=== PATIENT | male | born 2000 | race Caucasian/White ===

== ENCOUNTER 2021-01-24 15:08 | Outpatient (REF) | payer OTHER, SELFPAY ==
--- NOTE | ~2021-01-24 | XR_ITS ---
EXAMINATION: XR FOOT, RIGHT CLINICAL INFORMATION: Contusion right foot COMPARISON: Right foot 06/23/2018 TECHNIQUE: AP, lateral, and oblique views of the right foot. FINDINGS: There is a fracture of the head of the distal medial fifth metatarsal which is most likely comminuted but does not appear to involve the joint space. No other bony abnormality is seen. XR/XR foot RT min 3V IMPRESSION: Fracture head of fifth metatarsal
== END 2021-01-24 15:09 | disposition home or self-care (01) ==
LOC: HO.HMGCX 15:08
PROVIDERS: Visit Provider Internal Medicine
DX: S90.31XA Contusion of right foot, initial encounter (principal)
CPT/HCPCS: 73630

== ENCOUNTER → 2021-02-17 12:16 | Outpatient (BNVA) | payer OTHER, SELFPAY | PROVIDERS: PCP Internal Medicine; Visit Provider Physician Assistant | DX: S92.911A Unspecified fracture of right toe(s), initial encounter for closed fracture (principal) | CPT/HCPCS: 99202 ==

== ENCOUNTER 2021-02-22 10:28 | Outpatient (REF) | payer OTHER, SELFPAY ==
[2021-02-22 11:28] LABS: MANUAL DIFF FLAG NO
[2021-02-22 11:39] LABS: Basophils Percent Auto 0.4 % (0-2); Eosinophils Absolute Auto 0.3 X10*3/uL (0.0-0.4); Hematocrit 44.2 % (42.0-52.0); Hemoglobin 14.4 g/dl (14.0-18.0); Imm Gran Abs Auto 0.02 X10*3/uL (0.00-0.03); Imm Gran Pct Auto 0.3 % (0.0-0.4); Lymphocytes Absolute Auto 2.3 X10*3/uL (1.2-4.9); Lymphocytes Percent Auto 32.6 % (20-40); Mean Corpuscular HGB Conc 32.6 g/dl (31.0-36.0); Mean Corpuscular Hemoglobin 29.8 pg (27.0-33.0); Mean Corpuscular Volume 91.5 fL (80.0-98.0); Mean Platelet Volume 10.3 fL (9.4-12.4); Monocytes Absolute Auto 0.6 X10*3/uL (0.1-1.2); Neutrophils Absolute Auto 3.8 x10*3/uL (2.0-8.3); Neutrophils Percent Auto 53.7 % (45-73); Platelet Count 302 X10*3/uL (160-400); Red Blood Count 4.83 X10*6/uL (4.60-5.80); Red Cell Distribution Width 12.7 % (11.0-16.0)
[2021-02-22 11:58] LABS: Alanine Aminotransferase 33 U/L (0-40); Albumin Level 4.5 g/dL (3.5-5.0); Alkaline Phosphatase 98 U/L (39-117); Anion Gap 11 (12-20); Aspartate Amino Transferase 20 U/L (5-37); Bilirubin Total 0.5 mg/dL (0.0-1.0); Blood Urea Nitrogen 16 mg/dL (9-16); Calcium 9.5 mg/dL (8.4-10.2); Carbon Dioxide 27 mmol/L (22-29); Chloride 108 mmol/L (96-108); Cholesterol 156 mg/dL; Estimated Glomerular Filt Rate > 60; Glucose Fasting 95 mg/dL (60-99); HDL Cholesterol 41 mg/dL; LDL Cholesterol Calculated 93 mg/dl; Potassium 4.5 mmol/L (3.3-5.1); Sodium 141 mmol/L (135-145); Total Protein 7.3 g/dL (6.5-8.0); Triglycerides 112 mg/dL
[2021-02-22 12:21] LABS: TSH reflex Free T4 3.63 uIU/mL (0.32-4.0)
== END 2021-02-22 10:29 | disposition home or self-care (01) ==
LOC: HO.HMGCLDS 10:28
PROVIDERS: PCP Internal Medicine; Visit Provider Internal Medicine
DX: Z00.01 Encounter for general adult medical examination with abnormal findings (principal); G40.909 Epilepsy, unspecified, not intractable, without status epilepticus; E66.09 Other obesity due to excess calories
CPT/HCPCS: 36415; 80053; 80061; 84443; 85025

== ENCOUNTER 2021-11-06 13:56 | Outpatient (REF) | payer OTHER, SELFPAY ==
[2021-11-06 15:05] LABS: Hematocrit 40.3 % (42.0-52.0); Hemoglobin 13.3 g/dl (14.0-18.0); Mean Corpuscular Hemoglobin 29.8 pg (27.0-33.0); Mean Corpuscular Volume 90.4 fL (80.0-98.0); Mean Platelet Volume 9.9 fL (9.4-12.4); Platelet Count 334 X10*3/uL (160-400); Red Blood Count 4.46 X10*6/uL (4.60-5.80); Red Cell Distribution Width 13.2 % (11.0-16.0); White Blood Count 8.6 X10*3/uL (4.8-10.8)
[2021-11-06 15:26] LABS: Alanine Aminotransferase 41 U/L (0-40); Albumin Level 4.7 g/dL (3.5-5.0); Alkaline Phosphatase 90 U/L (39-117); Anion Gap 16 (12-20); Aspartate Amino Transferase 24 U/L (5-37); Bilirubin Direct 0.2 mg/dL (0.0-0.5); Bilirubin Total 0.4 mg/dL (0.0-1.0); Blood Urea Nitrogen 15 mg/dL (9-16); C Reactive Protein 0.62 mg/dL (< or = 0.50); Calcium 9.7 mg/dL (8.4-10.2); Carbon Dioxide 24 mmol/L (22-29); Chloride 106 mmol/L (96-108); Cholesterol 189 mg/dL; Estimated Glomerular Filt Rate > 60; Glucose Random 97 mg/dL (60-115); HDL Cholesterol 47 mg/dL; LDL Cholesterol Calculated 115 mg/dl; Potassium 4.1 mmol/L (3.3-5.1); Sodium 142 mmol/L (135-145); Total Protein 7.6 g/dL (6.5-8.0); Triglycerides 138 mg/dL
[2021-11-06 15:36] LABS: Thyroid Stimulating Hormone 3.04 uIU/mL (0.32-4.0)
== END 2021-11-06 13:57 | disposition home or self-care (01) ==
LOC: HO.HMGCLDS 13:56
PROVIDERS: PCP Internal Medicine; Visit Provider Internal Medicine
DX: R19.7 Diarrhea, unspecified (principal)
CPT/HCPCS: 36415; 80048; 80061; 80076; 84443; 85027; 86140

== ENCOUNTER 2022-10-23 12:36 | Outpatient (AMB) | payer OTHER, SELFPAY ==
--- NOTE | 2022-10-23 12:37 | MHC.PC.OV ---
Vital Signs 10/23/22 12:44 Height 5 ft 11 in Weight 282 lb BMI 39.3 BP 114/68 Blood Pressure Location Rt brachial Position Sitting Pulse 80 Pulse Source Pulse Oximeter Pulse Oximetry (%) 97 Oxygen Delivery Method Room Air Intake Visit Reasons: 3 Month follow up Allergies No Known Allergies Allergy (Verified 10/23/22 12:42) Medication List - Last Reconciled 10/23/22 by Silvia Amezquita MD fluoxetine 30 mg (3 x 10 mg) PO DAILY 90 days levetiracetam 2,000 mg PO BID Tobacco use date assessed: 10/23/22 Dental Screening Dental Screen Date: 10/23/22 Did you have a dental visit in the last 12 months?: Yes Did you have a dental problem in the last 6 months where you did not have access to dental care?: Yes Was dental information given to patient?: Patient has dentist HPI 3 Month follow up HPI Details Patient is 22-year-old gentleman came in today to have follow-up on anxiety Patient is currently taking 20 mg of fluoxetine his anxiety is better however patient feels as if he needs a little bit stronger does I am increasing it to 30 mg I have sent 20 mg and 10 mg patient is to take them both together daily He is also complaining of feeling tired during the day and falls asleep easily Patient does admit to snoring at night off and on. I have placed a referral for him to see a sleep specialist for evaluation. Follow-up 2 months on anxiety PFSH Family History Other Mental health disorder Social History Housing: Apartment Patient Tobacco Use Status: Former Tobacco user (4 years ago ) Quit Date: 2017 Tobacco use type: Cigarette Years Smoked: 1 year e-Cigarette/Vaping Use: Never Used Current occupational status: employed Current occupation: [employer]/ left hand Cognitive needs: No Hearing needs: No Vision needs: Yes (contacts) Questionnaire Thrive Questionnaire Date Thrive assessed: 07/31/22 AUDIT C Alcohol Use Questionnaire (AUDIT-C) 1. How often do you have a drink containing alcohol?: Monthly or less 2. How many drinks containing alcohol do you have on a typical day when you are drinking?: 1 or 2 3. How often do you have six or more drinks on one occasion?: Never Total Score: 1 JOYCE-7 AMB Questionnaire JOYCE-7 Date JOYCE - 7 assessed: 07/31/22 Source: Developed by Drs. Gabriel Melchor, Aminata Banks, Gavin Gonzalez and colleagues, with an educational nigel from [employer]. Review of Systems Const Denies chills and Denies fever(s) ENT Denies epistaxis and Denies nasal discharge Card Denies chest pain Resp Denies chest congestion, Denies cough and Denies hemoptysis GI Denies diarrhea and Denies nausea Skin/Breast Denies rash Neuro Reports no additional complaints Psych Reports no additional complaints Endo Reports no additional complaints Physical exam (Primary Care) Vital Signs: Last Vital Signs Pulse 80 10/23/22 12:44 BP 114/68 10/23/22 12:44 Pulse Ox 97 10/23/22 12:44 Oxygen Delivery Method Room Air 10/23/22 12:44 BMI result Body Mass Index 39.3 Tobacco/Smoking Status: Tobacco use Status Tobacco use date assessed 10/23/22 10/23/22 12:44 Patient Tobacco Use Status Former Tobacco user (4 years 10/23/22 12:39 ago ) Tobacco use type Cigarette 10/23/22 12:39 e-Cigarette/Vaping Use Never Used 10/23/22 12:39 Thrive Assessment: Date of Thrive Assessment Date Thrive assessed 07/31/22 10/23/22 12:39 Const General: cooperative, comfortable and no acute distress Orientation/consciousness: patient oriented x3 HENMT Head: Yes normocephalic Eyes General: appearance normal, both eyes and all related structures Neck Neck: Yes supple Resp Effort & Inspection: normal respiratory effort, no cough and no stridor Cardio Rhythm: regular rhythm Heart sounds: S1 normal heart sound present and S2 normal heart sound present Skin General skin exam: turgor normal Neuro General: patient oriented x3, tone normal and moves all extremities Extrem Right lower extremity: no edema Left lower extremity: no edema Assessment and Plan Assessment & Plan (1) Major depression, recurrent: Code(s): F33.9 - Major depressive disorder, recurrent, unspecified (2) Daytime somnolence: Code(s): R40.0 - Somnolence Plan Patient is 22-year-old gentleman came in today to have follow-up on depression Patient is currently taking 20 mg of fluoxetine his anxiety is better however patient feels as if he needs a little bit stronger does I am increasing it to 30 mg I have sent 20 mg and 10 mg patient is to take them both together daily He is also complaining of feeling tired during the day and falls asleep easily Patient does admit to snoring at night off and on. I have placed a referral for him to see a sleep specialist for evaluation. Follow-up 2 months on depression Orders: Referrals Sleep Medicine Referral R40.0 - Somnolence Medications: Changed From fluoxetine Take 1 capsule for 10 days and then 2 daily 20 mg (2 x 10 mg) PO DAILY 180 caps 0RF 90 days To fluoxetine Take 3 capsules daily 30 mg (3 x 10 mg) PO DAILY 270 caps 0RF Depression 90 days Coding Level of Care Code Est Pt Level 3 (67084) Diagnoses Major depression, recurrent F33.9 Daytime somnolence R40.0
[2022-10-23 12:44] VITALS: BP 114/68; PULSE 80; O2SAT 97; BMI 39.3
== END 2022-10-23 13:40 | disposition home or self-care (01) ==
PROVIDERS: Visit Provider Internal Medicine
DX: F33.9 Major depressive disorder, recurrent, unspecified (principal); R40.0 Somnolence
CPT/HCPCS: 99213

== ENCOUNTER 2022-12-25 12:32 | Outpatient (AMB) | payer OTHER, SELFPAY ==
--- NOTE | 2022-12-25 12:34 | A.OFFPC_ITS ---
Vital Signs 12/25/22 12:35 Height 5 ft 11 in Weight 283 lb BMI 39.5 BP 110/70 Blood Pressure Location Rt brachial Position Sitting Pulse 94 Pulse Source Pulse Oximeter Pulse Oximetry (%) 98 Oxygen Delivery Method Room Air Intake Visit Reasons: 3 onth follow up Intake Note: Pt is here today for 3 months follow up visit. Allergies No Known Allergies Allergy (Verified 12/25/22 12:36) Medication List - Last Reconciled 12/25/22 by Silvia Amezquita MD fluoxetine 30 mg (3 x 10 mg) PO DAILY 90 days levetiracetam 2,000 mg PO BID Tobacco use date assessed: 10/23/22 HPI 3 onth follow up HPI Details Patient is 22-year-old gentleman came in today for his regular follow- up appointment Depression/anxiety: Patient is on fluoxetine 30 mg currently, he is feeling better but would like to increase the dose to 40 mg that he was taking in the past. Patient is morbidly obese, having difficulty losing weight he is requesting consultation with the dietitian, we will book the appointment. Patient would also like to have labs done to check his sugar and cholesterol, order placed to be done fasting. He is still waiting for his appointment with a neurologist to talk about sleep apnea. I see that he has appointment coming up early next month. Follow-up 2 months physical exam. PFSH Family History Other Mental health disorder Social History Housing: Apartment Patient Tobacco Use Status: Former Tobacco user (4 years ago ) Quit Date: 2017 Tobacco use type: Cigarette Years Smoked: 1 year e-Cigarette/Vaping Use: Never Used Current occupational status: employed Current occupation: [employer]/ left hand Cognitive needs: No Hearing needs: No Vision needs: Yes (contacts) Questionnaire Thrive Questionnaire Date Thrive assessed: 07/31/22 JOYCE-7 AMB Questionnaire JOYCE-7 Date JOYCE - 7 assessed: 07/31/22 Source: Developed by Drs. Gabriel Melchor, Aminata Banks, Gavin Gonzalez and colleagues, with an educational nigel from [employer]. Review of Systems Const Denies chills and Denies fever(s) ENT Denies epistaxis and Denies nasal discharge Card Denies chest pain Resp Denies chest congestion, Denies cough and Denies hemoptysis GI Denies diarrhea and Denies nausea Skin/Breast Denies rash Neuro Reports no additional complaints Psych Reports no additional complaints Endo Reports no additional complaints Physical exam (Primary Care) Vital Signs: Last Vital Signs Pulse 94 12/25/22 12:35 BP 110/70 12/25/22 12:35 Pulse Ox 98 12/25/22 12:35 Oxygen Delivery Method Room Air 12/25/22 12:35 BMI result Body Mass Index 39.5 Tobacco/Smoking Status: Tobacco use Status Tobacco use date assessed 10/23/22 12/25/22 12:38 Patient Tobacco Use Status Former Tobacco user (4 years 12/25/22 12:38 ago ) Tobacco use type Cigarette 12/25/22 12:38 e-Cigarette/Vaping Use Never Used 12/25/22 12:38 Thrive Assessment: Date of Thrive Assessment Date Thrive assessed 07/31/22 12/25/22 12:38 Const General: cooperative, comfortable and no acute distress Orientation/consciousness: patient oriented x3 HENMT Head: Yes normocephalic Eyes General: appearance normal, both eyes and all related structures Neck Neck: Yes supple Resp Effort & Inspection: normal respiratory effort, no cough and no stridor Cardio Rhythm: regular rhythm Heart sounds: S1 normal heart sound present and S2 normal heart sound present Skin General skin exam: turgor normal Neuro General: patient oriented x3, tone normal and moves all extremities Extrem Right lower extremity: no edema Left lower extremity: no edema Assessment and Plan Assessment & Plan (1) Major depression, recurrent: Code(s): F33.9 - Major depressive disorder, recurrent, unspecified Qualifiers: Active/Remission status: currently active Major depression episode severity: moderate Qualified Code(s): F33.1 - Major depressive disorder, recurrent, moderate (2) Morbid obesity due to excess calories: Code(s): E66.01 - Morbid (severe) obesity due to excess calories (3) Migraine headache: Code(s): G43.909 - Migraine, unspecified, not intractable, without status migrainosus Qualifiers: Intractability: intractable Migraine type: without aura Status migrainosus presence: without status migrainosus Qualified Code(s): G43.019 - Migraine without aura, intractable, without status migrainosus (4) Daytime somnolence: Code(s): R40.0 - Somnolence (5) LFT elevation: Code(s): R79.89 - Other specified abnormal findings of blood chemistry (6) Seizure disorder: Code(s): G40.909 - Epilepsy, unspecified, not intractable, without status epilepticus Plan Patient is 22-year-old gentleman came in today for his regular follow-up appointment Depression/anxiety: Patient is on fluoxetine 30 mg currently, he is feeling better but would like to increase the dose to 40 mg that he was taking in the past. Patient is morbidly obese, having difficulty losing weight he is requesting consultation with the dietitian, we will book the appointment. Patient would also like to have labs done to check his sugar and cholesterol, order placed to be done fasting. He is still waiting for his appointment with a neurologist to talk about sleep apnea. I see that he has appointment coming up early next month. Follow-up 2 months physical exam. Orders: Orders Complete Blood Count Auto Diff Today E66.01 - Morbid (severe) obesity due to exc ess calories, F33.9 - Major depressive disorder, recurrent, unspecified, G40.909 - Epilepsy, unspecified, not intractable, without status epilepticus, G43.909 - Migraine, unspecified, not intractable, without status migrainosus, R40.0 - Somnolence, R79.89 - Other specified abnormal findings of blood chemistry Comprehensive [place]. Panel Fast Today E66.01 - Morbid (severe) obesity due to excess calories, F33.9 - Major depressive disorder, recurrent, unspecified, G40.909 - Epilepsy, unspecified, not intractable, without status epilepticus, G43.909 - Migraine, unspecified, not intractable, without status migrainosus, R40.0 - Somnolence, R79.89 - Other specified abnormal findings of blood chemistry TSH reflex Free T4 Today E66.01 - Morbid (severe) obesity due to excess calories, F33.9 - Major depressive disorder, recurrent, unspecified, G40.909 - Epilepsy, unspecified, not intractable, without status epilepticus, G43.909 - Migraine, unspecified, not intractable, without status migrainosus, R40.0 - Somnolence, R79.89 - Other specified abnormal findings of blood chemistry Lipid Panel Today E66.01 - Morbid (severe) obesity due to excess calories, F33.9 - Major depressive disorder, recurrent, unspecified, G40.909 - Epilepsy, unspecified, not intractable, without status epilepticus, G43.909 - Migraine, unspecified, not intractable, without status migrainosus, R40.0 - Somnolence, R79.89 - Other specified abnormal findings of blood chemistry Vitamin D 25-OH (D2 and D3) Today E66.01 - Morbid (severe) obesity due to excess calories, F33.9 - Major depressive disorder, recurrent, unspecified, G40.909 - Epilepsy, unspecified, not intractable, without status epilepticus, G43.909 - M igraine, unspecified, not intractable, without status migrainosus, R40.0 - Somnolence, R79.89 - Other specified abnormal findings of blood chemistry Medications: Changed From fluoxetine Take 3 capsules daily 30 mg (3 x 10 mg) PO DAILY 90 days 270 caps 0RF Depression To fluoxetine Take 3 capsules daily 40 mg (2 x 20 mg) PO DAILY 180 caps 0RF Depression 90 days Coding Level of Care Code Est Pt Level 4 (24729) Diagnoses Moderate episode of recurrent major depressive disorder F33.1 Active/Remission status: currently active Major depression episode severity: moderate Morbid obesity due to excess calories E66.01 Intractable migraine without aura and without status migrainosus G43.019 Intractability: intractable Migraine type: without aura Status migrainosus presence: without status migrainosus Daytime somnolence R40.0 LFT elevation R79.89 Seizure disorder G40.909
[2022-12-25 12:35] VITALS: BP 110/70; PULSE 94; O2SAT 98; BMI 39.5
== END 2022-12-25 12:53 | disposition home or self-care (01) ==
PROVIDERS: PCP Internal Medicine; Visit Provider Internal Medicine
DX: G43.019 Migraine without aura, intractable, without status migrainosus (principal); F33.1 Major depressive disorder, recurrent, moderate; E66.01 Morbid (severe) obesity due to excess calories; Z68.39 Body mass index [BMI] 39.0-39.9, adult; G40.909 Epilepsy, unspecified, not intractable, without status epilepticus; R40.0 Somnolence; R79.89 Other specified abnormal findings of blood chemistry
CPT/HCPCS: 99214

== ENCOUNTER 2022-12-26 11:10 | Outpatient (REF) | payer OTHER, SELFPAY ==
[2022-12-26 13:11] LABS: MANUAL DIFF FLAG NO
[2022-12-26 13:30] LABS: Basophils Absolute Auto 0.1 X10*3/uL (0.0-0.2); Basophils Percent Auto 0.6 % (0-2); Eosinophils Absolute Auto 0.4 X10*3/uL (0.0-0.4); Eosinophils Percent Auto 4.4 % (0-4); Hematocrit 41.5 % (42.0-52.0); Hemoglobin 13.5 g/dl (14.0-18.0); Imm Gran Abs Auto 0.01 X10*3/uL (0.00-0.03); Imm Gran Pct Auto 0.1 % (0.0-0.4); Lymphocytes Absolute Auto 2.2 X10*3/uL (1.2-4.9); Lymphocytes Percent Auto 27.9 % (20-40); Mean Corpuscular HGB Conc 32.5 g/dl (31.0-36.0); Mean Corpuscular Hemoglobin 29.5 pg (27.0-33.0); Mean Corpuscular Volume 90.6 fL (80.0-98.0); Monocytes Absolute Auto 0.7 X10*3/uL (0.1-1.2); Monocytes Percent Auto 8.7 % (2-11); Neutrophils Absolute Auto 4.7 x10*3/uL (2.0-8.3); Neutrophils Percent Auto 58.3 % (45-73); Platelet Count 307 X10*3/uL (160-400); Red Blood Count 4.58 X10*6/uL (4.60-5.80)
[2022-12-26 14:12] LABS: Alanine Aminotransferase 37 U/L (0-40); Albumin Level 4.5 g/dL (3.5-5.0); Alkaline Phosphatase 98 U/L (39-117); Anion Gap 11 (12-20); Aspartate Amino Transferase 24 U/L (5-37); Bilirubin Total 0.6 mg/dL (0.0-1.0); Blood Urea Nitrogen 16 mg/dL (9-16); Calcium 9.6 mg/dL (8.4-10.2); Carbon Dioxide 26 mmol/L (22-29); Chloride 109 mmol/L (96-108); Cholesterol 180 mg/dL (<200); Estimated Glomerular Filt Rate > 60; Glucose Fasting 91 mg/dL (60-99); HDL Cholesterol 52 mg/dL (>40); LDL Cholesterol Calculated 111 mg/dL (<100); Potassium 4.1 mmol/L (3.3-5.1); Sodium 142 mmol/L (135-145); TSH reflex Free T4 3.46 uIU/mL (0.32-4.0); Total Protein 7.5 g/dL (6.5-8.0); Triglycerides 87 mg/dL (<150)
[2022-12-30 16:24] LABS: Vitamin D 25-OH, D2 <4 ng/mL; Vitamin D 25-OH, D3 16 ng/mL; Vitamin D 25-OH, Total 16 ng/mL (30-100)
== END 2022-12-26 11:11 | disposition home or self-care (01) ==
LOC: HO.HMGCLDS 11:10
PROVIDERS: PCP Internal Medicine; Visit Provider Internal Medicine
DX: F33.9 Major depressive disorder, recurrent, unspecified (principal); E66.01 Morbid (severe) obesity due to excess calories; G43.909 Migraine, unspecified, not intractable, without status migrainosus; R40.0 Somnolence; R79.89 Other specified abnormal findings of blood chemistry; G40.909 Epilepsy, unspecified, not intractable, without status epilepticus
CPT/HCPCS: 36415; 80053; 80061; 82306; 84443; 85025

== ENCOUNTER → 2023-01-08 07:41 | Outpatient (BNVA) | payer OTHER, SELFPAY | PROVIDERS: PCP Internal Medicine; Visit Provider Nurse Practitioner Family ==

== ENCOUNTER 2023-04-22 15:30 | Outpatient (AMB) | payer OTHER, SELFPAY ==
--- NOTE | 2023-04-22 15:44 | A.OFFVIS_ITS ---
Intake Vital Signs 04/22/23 15:49 Height 5 ft 11 in Weight 291 lb BMI 40.6 BP 110/70 Blood Pressure Location Rt brachial Position Sitting Pulse 100 Pulse Source Pulse Oximeter Pulse Oximetry (%) 98 Oxygen Delivery Method Room Air Intake Visit Reasons: [id number] Intake Note: Patient presents for new patient evaluation. debt management counselor for sleep study Radio Time Buyer: Radio Time Buyer offered & declined Allergies No Known Allergies Allergy (Verified 04/22/23 15:51) Medication List - Last Reconciled 04/22/23 by Deena Hammond CNP fluoxetine 40 mg (2 x 20 mg) PO DAILY 90 days levetiracetam 1,000 mg PO BID lorazepam 0.25 mg (1/2 x 0.5 mg) PO BEDTIME 30 days HPI HPI Comments History of Present Illness Details 22 y/o male patient presents for new in- person visit for sleep consultation. Pt reports sleep walking, it started about 6-7 months ago. He started taking prozac in September and increased to 40 mg daily. He thinks that sleep walking occurs more frequently lately than when he started. Pt's heard something banging in the bathroom, and patient was spending about 30 min in the bathroom and saying he was cleaning the bathroom, but he just swept things off the counter. He was holding 8 months old baby, put him in bed and rolled over, almost suffocating the baby. He does not remember the episode, and his witnessed it. reports that his eyes are open and patient told her he is awake but he was not. His sleep schedule is usually from 2 am to 9 am, and feels rested and refreshed in the morning. He snores sometimes had witnessed apnea spells. He can have occasional sleepiness during daytime. 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 Pt has hx of grand mal seizure, and is on Keppra 1000 mg BID. His last seizure was June,. He does not drive. PFSH Family History Other Mental health disorder Social History Household Members: Spouse and Children Housing: Apartment Patient Tobacco Use Status: Former Tobacco user (4 years ago ) Quit Date: 2018 Tobacco use type: Cigarette Years Smoked: 7 year e-Cigarette/Vaping Use: Never Used Substance Use Type: Marijuana Current occupational status: unemployed Cognitive needs: No Hearing needs: No Vision needs: Yes (contacts) Review of Systems Const All systems reviewed & are unremarkable except as noted in HPI and below Physical Exam Vital Signs: Last Vital Signs Pulse 100 04/22/23 15:49 BP 110/70 04/22/23 15:49 Pulse Ox 98 04/22/23 15:49 Oxygen Delivery Method Room Air 04/22/23 15:49 BMI result Body Mass Index 40.6 Const General: cooperative Nutritional Appearance: obese Orientation/consciousness: patient oriented x3 Resp Effort & Inspection: normal respiratory effort and able to speak in complete sentences Neuro General: patient oriented x3 and gait normal Cranial nerves: Yes CN's II-XII intact bilaterally Cognition (Neuro): normal cognition Gait exam (Neuro): Normal gait present Motor exam (neuro): 5/5 motor strength present throughout Psych Appearance: grossly normal Mental Status: mental status grossly normal Speech and movement: Normal speech and movement present Affect: normal affect Attitude: cooperative Assessment & Plan Assessment & Plan (1) Daytime somnolence: Code(s): R40.0 - Somnolence (2) Sleepwalking [somnambulism]: Code(s): F51.3 - Sleepwalking [somnambulism] (3) Obesity, Class III, BMI 40-49.9 (morbid obesity): Code(s): E66.01 - Morbid (severe) obesity due to excess calories (4) Parasomnia: Code(s): G47.50 - Parasomnia, unspecified Plan Advised patient to undergo in lab sleep study to assess sleep related problems. Start ativan 0.25 mg qHS to treat sleep walking. Sleepwalking safety protocol education provided, printed and handed to patient. Medications: New lorazepam Please cut the tablet for patient 0.25 mg (1/2 x 0.5 mg) PO BEDTIME 30 days 15 tabs 2RF anxiety Coding Level of Care Code New Pt Level 3 (73524) Diagnoses Daytime somnolence R40.0 Sleepwalking [somnambulism] F51.3 Obesity, Class III, BMI 40-49.9 (morbid obesity) E66.01 Parasomnia G47.50
[2023-04-22 15:49] VITALS: BP 110/70; PULSE 100; O2SAT 98; BMI 40.6
== END 2023-04-22 16:14 | disposition home or self-care (01) ==
PROVIDERS: PCP Internal Medicine; Visit Provider Nurse Practitioner Family
DX: R40.0 Somnolence (principal); F51.3 Sleepwalking [somnambulism]; E66.01 Morbid (severe) obesity due to excess calories; G47.50 Parasomnia, unspecified
CPT/HCPCS: 99203

== ENCOUNTER → 2023-04-22 15:30 | Outpatient (BNVA) | payer OTHER, SELFPAY | PROVIDERS: PCP Internal Medicine; Visit Provider Nurse Practitioner Family | DX: R40.0 Somnolence (principal); F51.3 Sleepwalking [somnambulism]; G47.50 Parasomnia, unspecified; E66.01 Morbid (severe) obesity due to excess calories | CPT/HCPCS: 99202 ==

== ENCOUNTER 2023-07-02 11:09 | Outpatient (AMB) | payer OTHER, SELFPAY ==
--- NOTE | 2023-07-02 11:12 | MHC.PC.OV ---
Vital Signs 07/02/23 11:13 Height 5 ft 11 in Intake Visit Reasons: Medication F/U Allergies No Known Allergies Allergy (Verified 07/02/23 11:13) Medication List - Last Reconciled 07/02/23 by Silvia Amezquita MD fluoxetine 40 mg (2 x 20 mg) PO DAILY 90 days levetiracetam 1,000 mg PO BID lorazepam 0.25 mg (1/2 x 0.5 mg) PO BEDTIME 30 days Tobacco use date assessed: 07/02/23 Dental Screening Dental Screen Date: 07/02/23 Did you have a dental visit in the last 12 months?: Yes Did you have a dental problem in the last 6 months where you did not have access to dental care?: No Was dental information given to patient?: Patient has dentist HPI Medication F/U HPI Details Patient is 22-year-old gentleman this is a telemedicine video conference Patient suffers severe depression, but is doing well with fluoxetine 40 mg Last visit was December of last year, patient is tolerating medication no side effects No suicidal ideations. He also have epilepsy and is taking Keppra through [facility]. Medication refill sent We will book a physical exam appointment in 4 months. Last time he had labs as vitamin-D level was low, I would recommend to start taking ovpr-kpf-rbnaxez supplement daily 1000 units. PFSH Family History Other Mental health disorder Social History Household Members: Spouse and Children Housing: Apartment Patient Tobacco Use Status: Former Tobacco user (4 years ago ) Quit Date: 2017 Tobacco use type: Cigarette Years Smoked: 7 year e-Cigarette/Vaping Use: Never Used Substance Use Type: Marijuana Current occupational status: unemployed Cognitive needs: No Hearing needs: No Vision needs: Yes (contacts) Questionnaire Thrive Questionnaire Date Thrive assessed: 07/31/22 AUDIT C Alcohol Use Questionnaire (AUDIT-C) 1. How often do you have a drink containing alcohol?: Monthly or less 2. How many drinks containing alcohol do you have on a typical day when you are drinking?: 1 or 2 3. How often do you have six or more drinks on one occasion?: Never Total Score: 1 Score Reviewed/Action Taken: Yes JOYCE-7 AMB Questionnaire JOYCE-7 Date JOYCE - 7 assessed: 07/31/22 Source: Developed by Drs. Gabriel Melchor, Aminata Banks, Gavin Gonzalez and colleagues, with an educational nigel from [employer]. Review of Systems Const Denies chills and Denies fever(s) ENT Denies epistaxis and Denies nasal discharge Card Denies chest pain Resp Denies chest congestion, Denies cough and Denies hemoptysis GI Denies diarrhea and Denies nausea Skin/Breast Denies rash Neuro Reports no additional complaints Psych Reports no additional complaints Endo Reports no additional complaints Physical exam (Primary Care) Tobacco/Smoking Status: Tobacco use Status Tobacco use date assessed 07/02/23 07/02/23 11:16 Patient Tobacco Use Status Former Tobacco user (4 years 07/02/23 11:16 ago ) Tobacco use type Cigarette 07/02/23 11:16 e-Cigarette/Vaping Use Never Used 07/02/23 11:16 Thrive Assessment: Date of Thrive Assessment Date Thrive assessed 07/31/22 07/02/23 11:16 Telehealth Telehealth Location of provider rendering services: practice address Location of patient: address on file Patient Identification confirmed using: Name, : Yes Telehealth method: video Patient verbally consented to treatment: Yes Patient verbally consented to billing insurance company: Yes Patient informed of any privacy concerns related to visit: Yes Minutes spent on Phone/Video with Pt.: 13 Assessment and Plan Assessment & Plan (1) Major depression, recurrent: Code(s): F33.9 - Major depressive disorder, recurrent, unspecified Qualifiers: Active/Remission status: currently active Major depression episode severity: moderate Qualified Code(s): F33.1 - Major depressive disorder, recurrent, moderate (2) Seizure disorder: Code(s): G40.909 - Epilepsy, unspecified, not intractable, without status epilepticus Plan Patient is 22-year-old gentleman this is a telemedicine video conference Patient suffers severe depression, but is doing well with fluoxetine 40 mg Last visit was December of last year, patient is tolerating medication no side effects No suicidal ideations. He also have epilepsy and is taking Keppra through [facility]. Medication refill sent We will book a physical exam appointment in 4 months. Last time he had labs as vitamin-D level was low, I would recommend to start taking dkgy-wqp-grsoozl supplement daily 1000 units. Medications: Refilled fluoxetine Take 3 capsules daily 40 mg (2 x 20 mg) PO DAILY 90 days 180 caps 1RF Depression Coding Level of Care Code Tele Est Pt Level 3 (40998) Diagnoses Moderate episode of recurrent major depressive disorder F33.1 Active/Remission status: currently active Major depression episode severity: moderate Seizure disorder G40.901
== END 2023-07-02 12:13 | disposition home or self-care (01) ==
LOC: HO.HMGC 11:09
PROVIDERS: PCP Internal Medicine; Visit Provider Internal Medicine
DX: G40.909 Epilepsy, unspecified, not intractable, without status epilepticus (principal); F33.1 Major depressive disorder, recurrent, moderate
CPT/HCPCS: 99213

== ENCOUNTER → 2023-07-24 20:30 | Outpatient (REF) | payer OTHER, SELFPAY | LOC: HO.SL 20:30 | PROVIDERS: PCP Internal Medicine; Visit Provider Nurse Practitioner Family | DX: G47.50 Parasomnia, unspecified (principal); F51.3 Sleepwalking [somnambulism]; R40.0 Somnolence; E66.01 Morbid (severe) obesity due to excess calories | CPT/HCPCS: 95810 ==

== ENCOUNTER → 2023-07-24 22:03 | Outpatient (BNV) | payer OTHER, SELFPAY | PROVIDERS: PCP Internal Medicine; Visit Provider Psychiatry & Neurology Neurology | DX: G47.50 Parasomnia, unspecified (principal) | CPT/HCPCS: 95810 ==